=== PATIENT | male | born 1985 | race Caucasian/White ===

== ENCOUNTER 2018-09-03 12:11 | Day surgery (SDC) | payer OTHER ==
[2018-08-31 15:41] VITALS: BMI 30.3
[2018-09-03] MEDS ORDERED: LIDOCAINE HCL 1%, 10 MG/ML (20ML VIAL) ONE (12:49)
[2018-09-03] MEDS ORDERED: BUPIVACAINE HCL/PF 0.5% (5MG/ML) 10 ML VIAL ONE (12:49)
[2018-09-03] MEDS ORDERED: PROPOFOL 20 ML ONE ×2 (12:53)
[2018-09-03] MEDS ORDERED: MIDAZOLAM HCL 2 MG/2 ML SINGLE DOSE VIAL ONE (12:53)
[2018-09-03] MEDS ORDERED: SUCCINYLCHOLINE CHLORIDE 200 MG/10 ML SYRINGE ONE (12:53)
--- NOTE | 2018-09-03 12:58 | HP ---
History & Physical Update - History History: No Change - Physical Physical: No Change - Assessment Assessment: No Change - Plan Plan: No Change
[2018-09-03] MEDS ORDERED: ceFAZolin SODIUM 1 GM VIAL ONE (13:14)
[2018-09-03] MEDS ORDERED: DEXAMETHASONE SOD PHOSPHATE 4 MG/1 ML VIAL ONE (13:14)
[2018-09-03] MEDS ORDERED: LIDOCAINE HCL 1%, 10 MG/ML (20ML VIAL) INF ONE ×2 (13:27)
[2018-09-03] MEDS ORDERED: BUPIVACAINE HCL/PF (5 MG/ML) 30 ML VIAL IJ ONE ×2 (13:27)
[2018-09-03 14:25] VITALS: TEMP 97.6
[2018-09-03] MEDS ORDERED: ONDANSETRON 4 MG/2 ML VIAL IVPUSH PRN (15:11)
[2018-09-03] MEDS ORDERED: oxyCODONE HCL 5 MG TABLET PO PRN (15:11)
[2018-09-03] MEDS ORDERED: LACTATED RINGERS SOLUTION 1,000 ML IV SCH (15:15)
[2018-09-03 15:18] VITALS: BP 129/83; PULSE 58
--- NOTE | 2018-09-04 15:48 | OP ---
DATE OF OPERATION: 09/03/2018 PREOPERATIVE DIAGNOSIS: Soft tissue mass of the left anterior thigh consistent with sebaceous cyst, pending final pathology. POSTOPERATIVE DIAGNOSIS: Soft tissue mass of the left anterior thigh consistent with sebaceous cyst, pending final pathology. PROCEDURE: Excision of soft tissue mass. SURGEON: Geoffrey Austin MD [employer] CLAIMS ADJUSTER: CARMENCITA Orantes ANESTHESIA: Local with IV sedation. OPERATIVE FINDINGS: There was an approximately 5 cm in greatest dimension soft tissue mass of the left anterior thigh, clinically consistent with a sebaceous cyst, and the rest of the findings were unremarkable. PROCEDURE: The patient was placed on the operating table in supine position and the area over the soft tissue mass in question, which had been previously marked, was prepped with ChloraPrep and draped in sterile fashion. A timeout was taken and an elliptical incision mapped out on the skin to encompass the mass. Incision was made with a scalpel and taken down through skin and subcutaneous tissue and excision carried out using electrocautery. The specimen was passed off the operative field and sent for pathological examination. Hemostasis was secured with electrocautery and the wound copiously irrigated with sterile saline. The incision was closed in layers with interrupted 2-0 Vicryl for the deep fascia, interrupted 3-0 Vicryl for the deep dermis, and 4-0 Monocryl in subcuticular continuous fashion to reapproximate the skin edges. Surgical glue and Steri-Strips were placed followed by dry dressings and a Tegaderm, and the procedure terminated at this point and the patient transferred to the ambulatory surgery unit in my accompaniment. Estimated blood loss 10 mL, replacement was crystalloid. Drains: None. Specimens: Skin and soft tissue mass to Pathology. I, Geoffrey Austin, was physically present in the operating room from the time the patient was placed on the operating table until he was transferred to the ambulatory surgery unit in my accompaniment. MD LIV Duran/[id number] MTDD
--- NOTE | 2018-09-07 11:55 | PATH ---
Surgical Pathology Report Patient Name: LEONARDO GUERRA [facility]. Rec. #: [id number] /Age/Gender: 1985 (Age: 33) / M Account: [id number] Location: [facility] [place] SURGICAL Taken: 09/03/2018 Received: 09/04/2018 Reported: 09/07/2018 Physicians: Geoffrey Austin MD Specimen(s) Received SOFT TISSUE MASS, LEFT THIGH Clinical History Soft tissue mass left thigh Final Diagnosis SOFT TISSUE MASS, THIGH, LEFT, EXCISION: EPIDERMAL INCLUSION CYST. Electronically Signed Joseline Hawkins M.D. Gross Description Received in formalin labeled "soft tissue mass left thigh," is a 6.0 x 1.8 cm garnett, elliptical, unoriented portion of skin excised to depth of 2.2 cm. Sectioning reveals an intact cyst containing garnett sebaceous material. A screening representative section is submitted in one cassette. /09/05/2018 saudi/09/05/2018
== END 2018-09-03 15:18 | disposition home or self-care (01) ==
LOC: JASU-SURG 12:11
PROVIDERS: ATTEND Surgery
PROC: 0JBM0ZZ Excision of Left Upper Leg Subcutaneous Tissue and Fascia, Open Approach (ICD-10-PCS; principal; 2018-09-03 13:30)
DX: D48.1 Neoplasm of uncertain behavior of connective and other soft tissue (principal)